=== PATIENT | female | born 1955 | race Asian ===

== ENCOUNTER 2018-11-23 07:21 | Day surgery (SDC) | payer OTHER ==
[2018-11-23] MEDS ORDERED: PROPOFOL 60 ML (09:32)
[2018-11-23] MEDS ORDERED: LIDOCAINE 2% (SDV) 5 ML INJ (09:32)
== END 2018-11-23 11:15 | disposition home or self-care (01) ==
LOC: GIL 07:21
DX: Z12.11 Encounter for screening for malignant neoplasm of colon (principal); K64.8 Other hemorrhoids; D12.5 Benign neoplasm of sigmoid colon; D12.0 Benign neoplasm of cecum; K44.9 Diaphragmatic hernia without obstruction or gangrene; K21.9 Gastro-esophageal reflux disease without esophagitis; K31.7 Polyp of stomach and duodenum; E78.5 Hyperlipidemia, unspecified; I10 Essential (primary) hypertension; Z79.82 Long term (current) use of aspirin
CPT/HCPCS: 43239; 88305; 88312